=== PATIENT | female | born 1990 | race Caucasian/White ===

== ENCOUNTER 2017-04-10 12:21 | Emergency (ER) | payer OTHER ==
[~2017-04-10] VITALS: Ht 157.5 cm; Wt 60.5 kg
[2017-04-10 12:35] VITALS: Ht 157.5 cm; Wt 60.5 kg
--- NOTE | 2017-04-10 15:50 | ERD ---
ER Documentation Chief Complaint Date/Time DATE: 04/10/17 TIME: 15:48 Chief Complaint Pelvic pain X 4 days-burning pain. No fevers. HPI Patient is a 26-year-old female with no past medical history who presents to the ED with bilateral pelvic pain on and off for the last 4 days. She states that the pain came on suddenly and states that the pain is a pressure burning sensation. She denies fever or chills. She denies abdominal pain, nausea, vomiting or diarrhea. She states that her last bowel movement was last night. She states that she is sexually active with one partner and does use protection. No history of STDs in the past. She states that her last normal menstrual period was 03/23/17. She denies vaginal bleeding or abnormal vaginal discharge. She denies headache, dizziness, neck pain or neck stiffness. She denies chest pain, cough, shortness of breath or difficulty breathing. She denies leg pain or leg swelling. Denies recent travel or recent surgeries per ROS All systems reviewed and are negative except as per history of present illness. Medications Home Meds Active Scripts Naproxen* (Naprosyn*) 500 Mg Tablet, 500 MG PO BID Y for PAIN AND/OR INFLAMMATION, #30 TAB Prov:STEFANI BRUNER PA-C 04/10/17 PMhx/Soc Medical and Surgical Hx: pt denies Medical Hx, pt denies Surgical Hx Hx Alcohol Use: No Hx Substance Use: No Hx Tobacco Use: No Smoking Status: Never smoker Physical Exam Vitals Vital Signs Date Time Temp Pulse Resp B/P Pulse Ox O2 Delivery O2 Flow Rate FiO2 04/10/17 12:35 98.5 89 18 104/60 100 Physical Exam GENERAL: Well-developed, well-nourished female. Appears in no acute distress. HEAD: Normocephalic, atraumatic. EYES: Pupils are equally reactive bilaterally. EOMs grossly intact. No conjunctival erythema. ENT: Moist mucous membranes. No uvula deviation. No kissing tonsils. No exudates. NECK: Supple. No lymphadenopathy or thyromegaly. No meningismus. negative kernig. negative brudinski. LUNG: Clear to auscultation bilaterally. No rhonchi, wheezing, rales or coarse breath sounds. HEART: Regular rate and rhythm. No murmurs, rubs or gallops. ABDOMEN: No scars, ecchymosis or rashes noted. Soft, nontender, and nondistended. Positive bowel sounds in all four quadrants. No rebound tenderness , no guarding. (-) McBurneys point tenderness. No CVA tenderness. Slight tenderness to the left pelvic region and suprapubic. BACK: No midline tenderness. Extremities: Equal pulses bilaterally. No peripheral clubbing, cyanosis or edema. No unilateral leg swelling. NEUROLOGIC: Alert and oriented. Moving all four extremities. 5/5 strength in all extremities. Normal speech. Steady gait. SKIN: Normal color. Warm and dry. No rashes or lesions. Capillary refill < 2 seconds Results 24 hrs Laboratory Tests Test 04/10/17 15:00 Urine Color LT. YELLOW Urine Clarity CLEAR Urine pH 5.5 Urine Specific [place] 1.020 Urine Ketones NEGATIVE Urine Nitrite NEGATIVE Urine Bilirubin NEGATIVE Urine Urobilinogen 0.2 E.U./dL Urine Leukocyte Esterase NEGATIVE Urine Hemoglobin NEGATIVE Urine Glucose NEGATIVE% Urine Total Protein NEGATIVE Procedures/MDM ER COURSE: I kept the patient and/or family informed of laboratory and diagnostic imaging results throughout the emergency room course. IMAGING STUDIES [place] [address] Radiology Main Line: [phone] DIAGNOSTIC IMAGING REPORT Patient: MANDIE REYES : 1990 Age: 26 Sex: F [id number] DOS: 04/10/17 1539 Ordering MD: STEFANI BRUNER PA-C Location: [facility] Room/Bed: PROCEDURE: US Pelvis CLINICAL INDICATION: pelvic pain TECHNIQUE: Multiple sonographic images of the pelvis were obtained utilizing a transabdominal and endovaginal technique. The images were reviewed on a PACS workstation. COMPARISON: None. LMP: 03/24/2017 FINDINGS: The uterus measures 6.4 x 2.8 x 3.9 cm. The endometrial echo complex measures 12 mm in thickness. No discrete lesion is seen. The right ovary measures 3.7 x 2.2 x 3.0 cm. The left ovary is not visualized. There is normal vascular flow in the right ovary. There is a 2.6 cm thick-walled cystic lesion with low level internal echoes in the right ovary which is likely a hemorrhagic or corpus luteal cyst. It is not associated with significant vascular flow. There is mild pelvic free fluid. IMPRESSION: Prominence of the endometrium which measures up to 12 mm is likely due to stage of the menstrual cycle. 2.6 cm complex cystic lesion in the right ovary is likely a hemorrhagic or corpus luteal cyst. RPTAT: EE Gael Barber Physician Date Time Electronically viewed and signed by Gael Barber Physician on 04/10/2017 16:38 RA/ CC: STEFANI BRUNER PA-C LABORATORY STUDIES Urine test negative. Urine dip shows no nitrites, leukocytes or hematuria. Urine sent for gonorrhea and chlamydia. MEDICAL DECISION MAKING: This is a 26-year-old who presents with pelvic pain 4 days. Vital signs were reviewed. Patient is afebrile. Patient is not hypoxic. Patient is not toxic or ill-appearing. Her ultrasound is a very radiologist shows a 2.6 cm complex cystic lesion in the right ovary likely hemorrhagic or corpus luteal cyst. Low suspicion for ovarian torsion, PID, tuboovarian abscess, ectopic , bowel obstruction, pyelonephritis, UTI, appendicitis, cervicitis, septic , molar , HELLP syndrome, preeclampsia, eclampsia, placenta previa, placenta abruptia. DISCHARGE: At this time, patient is stable for discharge and outpatient management with no new complaints during the ER course. Patient was sent home with [place] for pain and a copy of her imaging report and to follow-up with gynecology.. Patient will be discharged home with instructions to recheck for new or worsening symptoms such as fever, nausea, weakness, LOC and to follow up with primary care in the next 1-2 days. Patient was advised to return to the ER for any new or worsening symptoms. Plan was discussed and patient and/or family understands and agrees. Home instructions were given. Departure Diagnosis: Primary Impression: Pelvic pain Condition: Stable STEFANI BRUNER PA-C April 10, 2017 15:50
--- NOTE | 2017-04-10 16:38 | RADRPT ---
PROCEDURE: US Pelvis CLINICAL INDICATION: pelvic pain TECHNIQUE: Multiple sonographic images of the pelvis were obtained utilizing a transabdominal and endovaginal technique. The images were reviewed on a PACS workstation. COMPARISON: None. LMP: 03/24/2017 FINDINGS: The uterus measures 6.4 x 2.8 x 3.9 cm. The endometrial echo complex measures 12 mm in thickness. No discrete lesion is seen. The right ovary measures 3.7 x 2.2 x 3.0 cm. The left ovary is not visualized. There is normal vascu lar flow in the right ovary. There is a 2.6 cm thick-walled cystic lesion with low level internal echoes in the right ovary which is likely a hemorrhagic or corpus luteal cyst. It is not associated with significant vascular flow . There is mild pelvic free fluid. IMPRESSION: Prominence of the endometrium which measures up to 12 mm is likely due to stage of the menstrual cyc le. 2.6 cm complex cystic lesion in the right ovary is likely a hemorrhagic or corpus luteal cyst. RPTAT: EE Physician Francis Date Time Electronically viewed and signed by Physician Francis on 04/10/2017 16:38 /
[2017-04-10 17:00] LABS: ADD UMIC NO; URINE BILIRUBIN (Dip) NEGATIVE (NEGATIVE); URINE BLOOD (Dip) NEGATIVE (NEGATIVE); URINE COLOR LT. YELLOW (YELLOW); URINE GLUCOSE (Dip) NEGATIVE (NEGATIVE); URINE KETONES (Dip) NEGATIVE (NEGATIVE); URINE LEUKOCYTE ESTERASE (Dip) NEGATIVE (NEGATIVE); URINE NITRITE (Dip) NEGATIVE (NEGATIVE); URINE TOTAL PROTEIN (Dip) NEGATIVE (NEGATIVE); URINE UROBILINOGEN (Dip) 0.2 E.U./dL (0.1-1.0)
[2017-04-10] MEDS ORDERED: NAPR-260 PO (17:28)
== END 2017-04-10 17:57 | disposition home or self-care (01) ==
LOC: FTE 12:21
DX: R10.2 Pelvic and perineal pain (principal)
CPT/HCPCS: 76830; 76856; 81003; 87591; Z7502

== ENCOUNTER 2018-01-19 16:47 | Emergency (ER) | END 2018-01-19 17:30 | disposition home or self-care (01) ==

== ENCOUNTER 2018-08-28 15:23 | Emergency (ER) | END 2018-08-28 16:32 | disposition home or self-care (01) ==